=== PATIENT | male | born 1965 | race Hispanic/Latino ===

== ENCOUNTER → 2020-03-18 09:19 | Outpatient (CLI) | payer OTHER, SELFPAY ==
--- NOTE | ~2020-03-18 | MR_ITS ---
EXAMINATION: MR shoulder LT wo con DATE: 03/18/2020 09:51 INDICATION: Left shoulder pain. TECHNIQUE: Magnetic resonance imaging (MRI) of the left shoulder was performed without intravenous co ntrast. Sequences included axial PD-weighted FS FSE, coronal oblique PD-weighted FS FSE and T2-weight ed FS FSE, and sagittal oblique T2-weighted FS FSE and T1-weighted FSE. COMPARISON: None. FINDINGS: Coracoacromial arch: The acromion undersurface is curved in morphology (type II). There is mild acromioclavicular joint os teoarthritis including inferiorly directed osteophytes. There is mild subacromial/subdeltoid bursitis . Rotator cuff: There is moderate supraspinatus and infraspinatus tendinopathy. Teres minor tendon is normal. There i s moderate subscapularis tendinopathy. No tear. There is no asymmetric fatty atrophy of the rotator c uff muscle bellies. Biceps tendon and glenoid labrum: Biceps tendon is in bicipital groove. There is mild intra-articular biceps tendinopathy. There are te ars of the labrum at 9:00 and 12:00 (SLAP tear). Fluid: There is no glenohumeral joint effusion. Bones/cartilage: Glenoid cartilage is normal. Humeral head cartilage is normal. IMPRESSION: 1. Moderate rotator cuff tendinopathy. No tear. 2. SLAP tear. 3. Mild acromioclavicular joint osteoarthritis. 4. Mild subacromial/subdeltoid bursitis. 5. Mild biceps tendinopathy. Reviewed, dictated and finalized at location A.
== END ==
PROVIDERS: PCP Family Medicine; Visit Provider Orthopaedic Surgery
DX: M19.012 Primary osteoarthritis, left shoulder (principal); M75.52 Bursitis of left shoulder; S43.432A Superior glenoid labrum lesion of left shoulder, initial encounter; X58.XXXA Exposure to other specified factors, initial encounter
CPT/HCPCS: 73221

== ENCOUNTER 2020-06-16 00:58 | Outpatient (CLI) | payer OTHER, SELFPAY ==
[2020-06-16 17:10] LABS: SARS-CoV-2 RNA PCR Negative
== END 2020-06-16 00:59 | disposition home or self-care (01) ==
LOC: ANHCOVIDDT 00:58
PROVIDERS: PCP Family Medicine; Visit Provider Orthopaedic Surgery
DX: Z01.812 Encounter for preprocedural laboratory examination (principal); Z20.828 Contact with and (suspected) exposure to other viral communicable diseases
CPT/HCPCS: 87635; C9803; U0003

== ENCOUNTER 2020-06-17 15:05 | Outpatient (CLI) | payer OTHER, SELFPAY ==
--- NOTE | 2020-06-17 15:06 | ECG_ITS ---
Measurements Intervals [place] Rate: 75 P: 20 [place]: 169 QRS: -20 QRSD: 100 T: 11 QT: 386 QTc: 434 Interpretive Statements SINUS RHYTHM EARLY PRECORDIAL R/S TRANSITION LOW QRS VOLTAGE IN PRECORDIAL LEADS VOLTAGE CRITERIA FOR LVH NONSPECIFIC T-WAVE ABNORMALITY- ANT/INF LEADS BORDERLINE ECG Electronically Signed On 06-17-2020 15:57:12 [employer] by Semaj Hopkins D.O.
[2020-06-17 16:21] LABS: Anion Gap 9 mmol/L (8-16); Blood Urea Nitrogen 14 mg/dL (9-20); Calcium 9.2 mg/dL (8.4-10.2); Carbon Dioxide 29 mmol/L (22-30); Chloride 98 mmol/L (98-107); Estimated Glomerular Filt Rate > 60; Glucose 126 mg/dL (75-110); Potassium 3.5 mmol/L (3.4-5.0); Sodium 136 mmol/L (137-145)
== END 2020-06-17 15:06 | disposition home or self-care (01) ==
PROVIDERS: Anesthesiology; PCP Family Medicine; Visit Provider Orthopaedic Surgery
DX: Z01.818 Encounter for other preprocedural examination (principal); I10 Essential (primary) hypertension
CPT/HCPCS: 36415; 80048; 93005

== ENCOUNTER 2020-06-19 00:54 | Day surgery (SDC) | payer OTHER, SELFPAY ==
[2020-06-09 18:08] VITALS: BMI 30.3
--- NOTE | 2020-06-17 12:30 | WPDANESEPPF ---
Anes - Initial Pre Proc Eval Procedure: Operation Date: 06/19/20 07:30 Proposed Procedures p Left Shoulder Arthroscopy with Debridement, Subacromial Decompression, Biceps Tenodesis - Nate Szymanski MD Date/Time: 06/17/20 12:30 Surgeon: Nate Szymanski MD Pre Op Diagnosis: left labral tear, shoulder pain,biceps tendonitis Patient Data Age: 55 Gender: M Height: 1.85 m Weight: 104.33 kg Allergies Allergy/AdvReac Type Severity Reaction Status Date / Time No Known Allergies Allergy Verified 06/19/20 06:35 Home Medications Medication Instructions Recorded Confirmed Type bupropion HCl 300 mg 24 hr tablet, 300 mg PO QAM #30 tablet 09/27/19 06/19/20 Rx extended release desvenlafaxine succinate 50 mg 50 mg PO DAILY 11/15/19 06/19/20 History tablet,extended release 24 hr hydrochlorothiazide 50 mg tablet 50 mg PO DAILY #1 tablet 11/15/19 06/19/20 Rx atorvastatin 10 mg tablet 10 mg PO DAILY #30 tablet 02/04/20 06/19/20 Rx irbesartan 300 mg tablet 300 mg PO DAILY #30 tablet 05/19/20 06/19/20 Rx amlodipine 10 mg tablet 10 mg PO DAILY #30 tablet 06/11/20 06/19/20 Rx ondansetron HCl [Zofran] 4 mg PO Q8H PRN #10 tablet 06/18/20 Rx tramadol 50 mg PO Q4H PRN #20 tablet 06/18/20 Rx Patient hx anesthesia problems: none Family hx anesthesia problems: none PMFSH Past Medical History Medical History Acromioclavicular arthrosis Anxiety Essential hypertension Labral tear of long head of left biceps tendon Pure hypercholesterolemia Rotator cuff tear arthropathy of left shoulder Shoulder pain, left Subacromial impingement of left shoulder Family History Family History Father Hypertension Cerebrovascular accident Malignant neoplasm of prostate Mother Hypertension Sibling Hypertension Social History Social History Smoking end date: 06/20/04 Alcohol intake: never Substance use: never Substance use type: does not use Living arrangements: with family Gender identity (if verbalized by the patient): Male Spiritual care concerns: No Anes - Eval Final PreProcedure Day of Procedure 06/17/20 12:30 Patient weight: obese Heart: regular rate and rhythm Lungs: clear to auscultation and normal air movement Airway: Mallampati scale class II Neurological: alert and oriented Last oral intake: >/= 8 hours ASA classification: III Emergent: no Anesthetic plan: proceed Anesthesia type and monitoring: general ETT and standard monitoring Informed Consent: The patient's anesthetic plan and its attendant risks and benefits were discussed with the patient/family/POA. Questions were solicited and answers provided to the satisfaction of the patient/family/POA.
--- NOTE | 2020-06-17 12:54 | PM.IMHP ---
H&P: HPI History of Present Illness Date/Time: 06/17/20 12:54 Chief Complaint: left shoulder pain Narrative: Kirk Thomas is a 55 year old male chronic left shoulder pain, weakness loss motion. Worse with activity use of the arm. With rest numbness or tingling. Denies neck pain. Treated with physical therapy, home exercises, anti-inflammatories without result. Patient has difficulty with lifting and overhead use of the arm. MRI demonstrates labral tear and degenerative changes. Patient presents now for operative treatment. Review of Systems Constitutional: Constitutional: Denies fever(s) Eyes: Eyes: Denies blurry vision ENT: Reports Normal hearing present Cardiovascular: Cardiovascular: Denies chest pain and Denies dyspnea Respiratory: Respiratory: Denies dyspnea and Denies wheezing Gastrointestinal: Gastrointestinal: Denies abdominal pain Genitourinary: Genitourinary: Denies urinary urgency Musculoskeletal: Musculoskeletal: Reports as per HPI and Denies numbness Integumentary/Breasts: Skin/Breast: Denies changing lesions and Denies sores Neurologic: Reports Normal hearing present, Denies behavioral changes, Denies confusion, Denies numbness and Denies convulsions Psychiatric: Psychiatric: Denies behavioral changes, Denies confusion and Denies hallucinations Endocrine: Endocrine: Denies heat intolerance Hematologic/Lymphatic: Hematologic/Lymphatic: Denies easy bleeding Allergic/Immunologic: Allergic/Immunologic: Denies wheezing PMFSH Past Medical History Medical History Acromioclavicular arthrosis Anxiety Essential hypertension Labral tear of long head of left biceps tendon Pure hypercholesterolemia Rotator cuff tear arthropathy of left shoulder Subacromial impingement of left shoulder Family History Family History Father Hypertension Cerebrovascular accident Malignant neoplasm of prostate Mother Hypertension Sibling Hypertension Social History Social History Smoking end date: 06/20/04 Alcohol intake: never Substance use: never Substance use type: does not use Gender identity (if verbalized by the patient): Male Spiritual care concerns: No Meds Home Medications and Allergies Home Medications Medication Instructions Recorded Confirmed Type bupropion HCl 300 mg 24 hr tablet, 300 mg PO QAM #30 tablet 09/27/19 06/09/20 Rx extended release desvenlafaxine succinate 50 mg 50 mg PO DAILY 11/15/19 06/09/20 History tablet,extended release 24 hr hydrochlorothiazide 50 mg tablet 50 mg PO DAILY #1 tablet 11/15/19 06/09/20 Rx atorvastatin 10 mg tablet 10 mg PO DAILY #30 tablet 02/04/20 06/09/20 Rx irbesartan 300 mg tablet 300 mg PO DAILY #30 tablet 05/19/20 06/09/20 Rx amlodipine 10 mg tablet 10 mg PO DAILY #30 tablet 06/11/20 Rx Allergies Allergy/AdvReac Type Severity Reaction Status Date / Time No Known Allergies Allergy Verified 04/23/20 14:38 Exam Const: General: healthy appearing; No in distress or confusion Orientation/consciousness: oriented to person, oriented to place, oriented to time and No confusion HENMT: Head: normal to inspection, normocephalic and atraumatic Eyes: Conjunctivae: conjunctivae normal Sclera: sclerae normal Neck: Neck: supple and nontender Resp: Effort & Inspection: normal respiratory effort and no audible wheezes Cardio: Rate: regular rate Rhythm: regular rhythm Skin: General skin exam: no rashes or lesions noted Neuro: General: oriented to person, oriented to place, oriented to time and No confusion Extrem: Right upper extremity: shoulder/upper arm axillary nerve sensory function normal, normal ROM (FF 130, Abd 120, ER 70, IR T7) and other (RC 5/5, Bicep 5/5, Deltoid 5/5, ER 5/5); no tenderness and no swelling, elbow/forearm normal ROM; no tenderness a
--- NOTE | 2020-06-18 13:25 | WPDANESEPP ---
Anes - Eval Pre Procedure Procedure: Operation Date: 06/19/20 07:30 Proposed Procedures p Left Shoulder Arthroscopy with Debridement, Subacromial Decompression, Biceps Tenodesis - Nate Szymanski MD Date/Time: 06/18/20 13:25 Pre Op Diagnosis: left labral tear, shoulder pain,biceps tendonitis Patient Data Age: 55 Gender: M Height: 6 ft 1 in Weight: 104.33 kg Allergies Allergy/AdvReac Type Severity Reaction Status Date / Time No Known Allergies Allergy Verified 04/23/20 14:38 Home Medications Medication Instructions Recorded Confirmed Type bupropion HCl 300 mg 24 hr tablet, 300 mg PO QAM #30 tablet 09/27/19 06/09/20 Rx extended release desvenlafaxine succinate 50 mg 50 mg PO DAILY 11/15/19 06/09/20 History tablet,extended release 24 hr hydrochlorothiazide 50 mg tablet 50 mg PO DAILY #1 tablet 11/15/19 06/09/20 Rx atorvastatin 10 mg tablet 10 mg PO DAILY #30 tablet 02/04/20 06/09/20 Rx irbesartan 300 mg tablet 300 mg PO DAILY #30 tablet 05/19/20 06/09/20 Rx amlodipine 10 mg tablet 10 mg PO DAILY #30 tablet 06/11/20 Rx Patient hx anesthesia problems: none Family hx anesthesia problems: none PMFSH Past Medical History Medical History Acromioclavicular arthrosis Anxiety Essential hypertension Labral tear of long head of left biceps tendon Pure hypercholesterolemia Rotator cuff tear arthropathy of left shoulder Shoulder pain, left Subacromial impingement of left shoulder Family History Family History Father Hypertension Cerebrovascular accident Malignant neoplasm of prostate Mother Hypertension Sibling Hypertension Social History Social History Smoking end date: 06/20/04 Alcohol intake: never Substance use: never Substance use type: does not use Gender identity (if verbalized by the patient): Male Spiritual care concerns: No Exam Day of Procedure 06/18/20 13:25 Patient weight: overweight Heart: regular rate and rhythm Lungs: clear to auscultation Airway: Mallampati scale class II Neurological: alert and oriented
[2020-06-19] VITALS (8 sets, daily range): BP systolic 93–119; BP diastolic 54–77; PULSE 73–90; RESP 14–18; TEMP 35.9–36.1; O2SAT 98–100; BMI 32.1
--- NOTE | 2020-06-19 06:44 | WPDHPUPDATE1 ---
History and Physical Update Update Date/Time: 06/19/20 06:44 History and Physical has been reviewed, including an updated exam of the patient. There are NO changes in the patient's condition. Covid test negative. Risks, benefits, and alternatives have been discussed and questions answered. Patient agrees to proceed with procedure.
[2020-06-19] MEDS: LACTATED RINGERS 1,000 ML 30 ML IV CONT ×2 (06:47→09:21)
[2020-06-19] MEDS: ACETAMINOPHEN 500 MG TABLET 1000 MG PO (06:48)
[2020-06-19] MEDS: KETOROLAC 15 MG/ML VIAL (*BKC) IV PUSH (06:50)
[2020-06-19] MEDS: ceFAZolin 2 GM/D5W 50 ML 2 GM/50 ML BAG IVPB (07:28)
[2020-06-19] MEDS: LIDO 1%/EPINEPHRINE 1:100,000 50 ML VIAL INFILTRATE (08:41)
[2020-06-19] MEDS: BUPIVACAINE HCL 0.5% PF 30 ML VIAL INFILTRATE (08:41)
--- NOTE | 2020-06-19 09:43 | PM.PROC ---
Procedure Note - Detailed Date of procedure: 06/19/20 Pre-op diagnosis: left labral tear, shoulder pain,biceps tendonitis Post-op diagnosis: same Procedure performed: Left shoulder arthroscopy with debridement, subacromial decompression, biceps tenodesis Description of procedure: Indications: Patient is a 55-year-old gentleman with chronic left shoulder pain. MRI demonstrates labral tear with biceps tendinitis and bursitis consistent with impingement. Patient has failed conservative treatment with physical therapy, home exercises, anti-inflammatories. He presents for operative treatment. What was done: Patient identified in the preoperative holding. Informed consent given. Operative extremity marked. Patient received intravenous antibiotics. Patient brought to the operating room where underwent general anesthetic by anesthesia team. Positioned supine on operating room table. Table then positioned in a beach chair with careful securing of the head and neck and padding for the bony prominences. After checking position a Time-out performed confirming the patient, site of the surgery and the plan. Left shoulder prepped draped usual sterile surgical fashion using ChloraPrep skin solution. Standard arthroscopic portals mapped out on the skin. Saline injected into the glenohumeral joint with the 18 gauge spinal needle. Eleven blade knife used to make a posterior camera portal through the skin. Blunt penetration of the capsule and the camera and inflow were inserted. Good return of fluid noted. Shoulder joint was inspected. Mild degenerative changes of the glenoid and humeral head with no exposed bone. Superior extending to posterior tear of the labrum with instability. Degenerative changes of the proximal biceps at the biceps anchor as well as inflammation of the proximal biceps tendon. Rotator cuff noted to be intact. An anterior portal then made with 18 gauge needle for positioning followed by an 11 blade knife for the skin and blunt penetration of the capsule. 4.5 mm shaver introduced and debridement of the intra-articular portion performed including the articular surface of the glenoid and humeral head, labral surface and anterior synovitis. Due to the labral tear and degenerative changes of the biceps a tenotomy was indicated. Arthroscopic wand introduced and the biceps was released from the labral anchor. Bleeding points were coagulated with the Wand and the debridement of the labrum was completed with the Wand. Camera and inflow then positioned in the subacromial space. A lateral portal made with 11 blade knife for the skin and blunt penetration of the soft tissue. The shaver introduced from the lateral portal and a subacromial decompression performed. Bleeding points coagulated with the Wand. The arthroscopic fluid was then suctioned from the subacromial and glenohumeral spaces. Skin incisions closed with 3 Monocryl subcuticular stitch and glue for the skin. Oblique incision then made in the left axillary fold with the 10 blade knife. Hemostasis controlled electrocautery. Dissection carried down to the subpectoral area. Medial retraction used on the short head of the biceps to protect the neurovascular bundle. The long head of the biceps and identified and brought out through the wound. Whip stitch placed at the musculotendinous junction and the distal aspect of the tendon was removed. This was noted to be diseased tendon which was degenerative and thickened. Tenodesis then performed with a fiber tack suture placed bicortical fashion followed by a bio tenodesis screw. Good fixation noted. Wound thoroughly irrigated with antibiotic solution and closed with 2 Vicryl interrupted suture and 3 Monocryl running subcuticular stitch. Glue for the skin. Sterile dressing applied. The patient was then woken from anesthesia, extubated and taken to the recovery room in stable condition. All sponge, needle, instrument counts were correct at the end of the case.
--- NOTE | 2020-06-19 10:07 | SUR.PHASEI ---
[id number]. DOMITILA THOMASON TO SPEAK WITH PT.
== END 2020-06-19 11:00 | disposition home or self-care (01) ==
PROVIDERS: PCP Family Medicine; Visit Provider Orthopaedic Surgery
PROC: (CPT 29805; principal; 2020-06-19 07:30)
DX: M75.82 Other shoulder lesions, left shoulder (principal); M75.22 Bicipital tendinitis, left shoulder; M19.012 Primary osteoarthritis, left shoulder; M75.42 Impingement syndrome of left shoulder; M75.52 Bursitis of left shoulder; I10 Essential (primary) hypertension; E78.00 Pure hypercholesterolemia, unspecified; E66.9 Obesity, unspecified; Z68.32 Body mass index [BMI] 32.0-32.9, adult
CPT/HCPCS: 29823; 23430; 36415; 80048; 93005; A4565; A9270; C9803; J0690; J1100; J1885; J2250; J2370; J2405; J2704; J2710; J3010; J7120; U0003

== ENCOUNTER 2020-07-04 12:53 | Outpatient (CLI) | payer OTHER, SELFPAY ==
--- NOTE | ~2020-07-04 | XR_ITS ---
EXAMINATION: XR lg joint inject/asp w image DATE: 07/04/2020 13:21 INDICATION: Right hip arthritis. TECHNIQUE: A time-out was performed to verify the patient's name, date of , and procedure to b e performed. The procedure including the risks, benefits, and alternatives was discussed with the pat ient. Risks discussed included bleeding and infection. The patient understood the risks and agreed to proceed. The skin overlying the right hip joint was prepped and draped in usual sterile fashion. A nesthetic was administered with 1% lidocaine subcutaneously. A 22 G needle was advanced under fluoro scopic guidance into the joint. Injection of 1 mL of Omnipaque 240 confirmed intra-articular positio n of the needle. 3 mL clear, yellow fluid was aspirated and discarded. Subsequently, injectate consis ting of 2 mL 0.5% bupivacaine and 1 mL 80 mg/mL Depo-Medrol was instilled. The needle was removed an d the entry site was cleaned and dressed. There were no immediate complications. Fluoroscopy exposur e time was 0.1 minutes. The total number of images was 2. FINDINGS: Real-time fluoroscopy demonstrates the needle in the right hip joint. Patient's pain prior to procedure:11/27. Patient's pain following the procedure: 06/29. IMPRESSION: 1. Right hip joint injection of local anesthetic and steroid with decrease in the patient's presentin g pain. Reviewed, dictated and finalized at location A. PLACER IMPRESSION: 1. Right hip joint injection of local anesthetic and steroid with decrease in t he patient's presenting pain.
== END 2020-07-04 12:54 | disposition home or self-care (01) ==
LOC: ANHIMG 12:57
PROVIDERS: PCP Family Medicine; Visit Provider Orthopaedic Surgery
DX: M16.11 Unilateral primary osteoarthritis, right hip (principal)
CPT/HCPCS: 20610; 77002; J1040; Q9966

== ENCOUNTER 2020-11-04 12:53 | Outpatient (CLI) | payer OTHER, SELFPAY ==
--- NOTE | ~2020-11-04 | XR_ITS ---
EXAMINATION: XR lg joint inject/asp w image DATE: 11/04/2020 13:36 INDICATION: Unilateral primary osteoarthritis, right hip. TECHNIQUE: The skin overlying the right hip joint was prepped and draped in usual sterile fashion. A nesthetic was administered with 1% lidocaine subcutaneously. A 22 G needle was advanced under fluoro scopic guidance into the joint. Injection of 1 mL of Omnipaque 240 confirmed intra-articular positio n of the needle. Subsequently, injectate consisting of 5 mL 1% lidocaine and 2 mL 10 mg/mL Kenalog w as instilled. The needle was removed and the entry site was cleaned and dressed. There were no imme diate complications. Fluoroscopy exposure time was 0.1 minutes. The total number of images was 2. FINDINGS: Real-time fluoroscopy demonstrates the needle in the right hip joint. Patient's pain prior to procedure:11/27. Patient's pain following the procedure: 07/30. IMPRESSION: 1. Fluoroscopy guided right hip joint injection of local anesthetic and steroid with decrease in the patient's presenting pain. Reviewed, dictated and finalized at location A.
== END 2020-11-04 12:54 | disposition home or self-care (01) ==
PROVIDERS: PCP Family Medicine; Visit Provider Orthopaedic Surgery
DX: M16.11 Unilateral primary osteoarthritis, right hip (principal)
CPT/HCPCS: 20610; 77002; J3301; Q9966

== ENCOUNTER 2021-02-04 10:10 | Outpatient (CLI) | payer OTHER, SELFPAY ==
--- NOTE | ~2021-02-04 | XR_ITS ---
XR hip RT min 3V w AP pelvis DATE: 02/04/2021 10:30 INDICATION: Right hip pain, limited range of motion. TECHNIQUE: AP pelvis. AP, lateral and crosstable lateral views of right hip COMPARISON: 07/01/2020 pelvis and right hip FINDINGS: There is asymmetric severe right hip osteoarthritis with increased joint space narrowing an d spurring since 07/01/2020. No fracture or dislocation or bone destruction of the right hip is evident. The pubic symphysis and sacroiliac joints are intact. No pelvic fracture or pelvic bone destruction i s evident. Severe degenerative disc disease at L5-S1. IMPRESSION: Asymmetric severe right hip osteoarthritis, increased in severity since 07/01/2020 Severe degenerative disc disease at L5-S1 Reviewed, dictated and finalized at location A. IMPRESSION: Asymmetric severe right hip osteoarthritis, increased in severity s mehrdad 07/01/2020 Severe degenerative disc disease at L5-S1
== END 2021-02-04 10:11 | disposition home or self-care (01) ==
LOC: ANHIMG 10:12
PROVIDERS: PCP Family Medicine; Visit Provider Orthopaedic Surgery
DX: M25.551 Pain in right hip (principal); M16.11 Unilateral primary osteoarthritis, right hip; M51.37 Other intervertebral disc degeneration, lumbosacral region
CPT/HCPCS: 73502

== ENCOUNTER 2021-03-06 12:15 | Outpatient (CLI) | payer OTHER, SELFPAY ==
--- NOTE | ~2021-03-06 | XR_ITS ---
EXAMINATION: XR lg joint inject/asp w image DATE: 03/06/2021 12:55 INDICATION: Unilateral primary osteoarthritis of the right hip. TECHNIQUE: A time-out was performed to verify the patient's name, date of , and procedure to b e performed. The procedure including the risks, benefits, and alternatives was discussed with the pat ient. Risks discussed included bleeding and infection. The patient understood the risks and agreed to proceed. The skin overlying the right hip joint was prepped and draped in usual sterile fashion. A nesthetic was administered with 1% lidocaine subcutaneously. A 22 G needle was advanced under fluoro scopic guidance into the joint. Injection of 1 mL of Omnipaque 240 confirmed intra-articular positio n of the needle. Subsequently, injectate consisting of 7 mm a 5:2 mixture of 1% lidocaine: 10 mg/mL Kenalog for a total dosage of 20 mg Kenalog was instilled. Washout of contrast was seen confirming in tra-articular administration. The needle was removed and the entry site was cleaned and dressed. The re were no immediate complications. Fluoroscopy exposure time was 0.1 minutes. The total number of im ages was 2. Total DAP was 0.334 mGycm^2 FINDINGS: Real-time fluoroscopy demonstrates the needle in the right hip joint. Patient's pain prior to procedure:8/10. Patient's pain following the procedure: 0/10. IMPRESSION: 1. Successful right hip joint injection of local anesthetic and steroid with decrease in the patient' s presenting pain. Reviewed, dictated and finalized at location A. IMPRESSION: 1. Successful right hip joint injection of local anesthetic and steroid with de crease in the patient's presenting pain.
== END 2021-03-06 12:16 | disposition home or self-care (01) ==
LOC: ANHIMG 12:19
PROVIDERS: PCP Family Medicine; Visit Provider Orthopaedic Surgery
DX: M16.11 Unilateral primary osteoarthritis, right hip (principal)
CPT/HCPCS: 20610; 77002; J3301; Q9966

== ENCOUNTER 2021-05-28 07:49 | Outpatient (CLI) | payer OTHER, SELFPAY ==
[2021-05-28 08:57] LABS: Basophils Absolute Auto 0.1 K/mm3 (0.0-0.1); Basophils Percent Auto 1.1 % (0.2-1.2); Eosinophils Absolute Auto 0.3 K/mm3 (0-0.3); Eosinophils Percent Auto 4.4 % (0-4.4); Hemoglobin 16.3 g/dL (14.0-18.0); Immature Granulocyte Absolute 0.01 K/mm3 (0.00-0.031); Immature Granulocyte Percent A 0.2 % (0-0.5); Lymphocytes Absolute Auto 1.65 K/mm3 (0.9-3.2); Lymphocytes Percent Auto 26.8 % (18.3-44.2); Mean Corpuscular HGB Conc 36.2 g/dl (32-36); Mean Corpuscular Hemoglobin 32.2 pg (26-34); Mean Corpuscular Volume 88.9 fl (80-100); Mean Platelet Volume 9.3 fl (7.4-10.4); Monocytes Absolute Auto 0.6 K/mm3 (0.1-0.6); Monocytes Percent Auto 9.9 % (2.6-8.5); Neutrophils Absolute Auto 3.5 K/mm3 (1.3-6.7); Neutrophils Percent Auto 57.6 % (45.5-73.1); Platelet Count Result 238 k/mm3 (150-375); Red Blood Count 5.06 M/mm3 (4.6-6.20); Red Cell Distribution Width 12.1 % (11.5-14.5); White Blood Count 6.2 K/mm3 (4.5-10.0)
[2021-05-28 09:03] LABS: Urine Cotinine NEGATIVE
[2021-05-28 09:07] LABS: Albumin Level 4.3 g/dL (3.5-5.1); Anion Gap 8 mmol/L (8-16); Blood Urea Nitrogen 12 mg/dL (9-20); Calcium 9.5 mg/dL (8.4-10.2); Carbon Dioxide 29 mmol/L (22-30); Chloride 101 mmol/L (98-107); Estimated Glomerular Filt Rate > 60; Glucose 101 mg/dL (65-110); Potassium 3.9 mmol/L (3.4-5.0); Sodium 138 mmol/L (137-145)
[2021-05-28 10:07] LABS: Hemoglobin A1C 4.8 % (<5.7)
== END 2021-05-28 07:50 | disposition home or self-care (01) ==
PROVIDERS: PCP Family Medicine; Visit Provider Orthopaedic Surgery
DX: Z01.818 Encounter for other preprocedural examination (principal); M16.11 Unilateral primary osteoarthritis, right hip
CPT/HCPCS: 80048; 80307; 82040; 83036; 85025; 86850; 86900; 86901; 87081

== ENCOUNTER 2021-06-08 01:22 | Day surgery (SDC) | payer OTHER, SELFPAY ==
--- NOTE | 2021-05-28 08:08 | PC.NURSE ---
Report to the Outpatient Waiting Room, entrance under the green pavilion located off [facility], at time _0600 on date __06/08/21 . OR Time: 729 . - You and your visitor will be asked a series of questions to screen for COVID 19 for your protection. - A mask is required within the hospital. - Only one visitor is allowed at this time. Patient visitors will be guided where to wait when not with patient. Preoperative COVID Testing Requirements: No COVID Test needed if: (proof is required; if not received patient will have Rapid Test prior to entry) - Patient has received COVID Vaccine at least 14 days prior to procedure date or - Patient has positive COVID test result within last 90 days of surgery date. COVID Test needed if above criteria is not met If not COVID vaccinated a COVID test must be conducted within 72 hours of surgery and patient is asked to isolate self from time of testing until procedure. You will go to the [employer] [facility] for your COVID testing. The [employer] [facility] site is located at the corner of [address] [facility]. You will only be called if COVID results are positive and your surgeon may reschedule your elective surgery date. Patients may have clear liquids (water, carbonated beverages, clear teas, apple juice) until 3 hours prior to surgery with a maximum of 20 ounces. - No food from midnight until time of surgery - Infants may have breast milk until 4 hours before surgery, infant formula 6 hours prior to surgery. - Children will be allowed to drink immediately following surgery. If applicable, please bring a bottle or sippy cup to assist with drinking. Juice, water, soda, and popsicles are readily available. For infants on formula, please bring formula the day of surgery. Pacifiers are allowed. Take the following medications with a SIP of water the morning of surgery: _AMLODIPINE,DESVENLAFAXINE,AND BUPROPION Medications to discontinue per physician ____MULTIVITAMIN 3 DAYS PRE OP Date to take last dose__06/04/21 Please no make-up, nail sami, hairspray, perfume, deodorant, or body powder the day of surgery. No jewelry (including any body piercings) or valuables the day of surgery, leave them at home. Please take a shower or bath the night before, or the morning of, surgery with an antibacterial soap. Wear comfortable, loose fitting clothing. Children are encouraged to wear pajamas. - Jewelry must be removed prior to entering the operating room. Rings and piercings that are not removed may be cut off. - The hospital will not accept responsibility for valuables. - Please leave all valuables, including medications, at home the day of surgery. If you are going home after surgery, a licensed lift driver must drive you home. - NO public transportation without another adult. - We recommend that an adult stay with you for 24 hours following discharge. - We also recommend that you do not drive, make important decision, drink alcoholic beverages, or take any drugs that were not prescribed by your health care provider for at least 24 hours after your discharge time. For Pediatric surgeries, we recommend two adults accompany the child home (only one inside the building at this time). Follow any additional instructions given to you from your surgeon. VERBAL instructions given to ___PATIENT and asked if any additional questions and then verbalized understanding. Patient advised to call surgeon office or pre surgery nurse liaison [phone] if any additional questions.
[2021-05-28 08:26] VITALS: BP 137/87; PULSE 74; RESP 16; TEMP 37.2; O2SAT 99; BMI 29.1
[2021-06-08] VITALS (10 sets, daily range): BP systolic 113–161; BP diastolic 64–90; PULSE 64–92; RESP 9–20; TEMP 36.2–36.6; O2SAT 95–100
--- NOTE | ~2021-06-08 | XR_ITS ---
EXAMINATION: XR hip RT min 2V DATE: 06/08/2021 11:02 INDICATION: Right hip arthroplasty. Postop. TECHNIQUE: 2 views of right hip were obtained. COMPARISON: Right hip radiographs 05/21/2021 FINDINGS: There is a total right hip arthroplasty in near-anatomic alignment. No fracture. There is g as in the soft tissues, consistent with recent surgery. IMPRESSION: 1. Total right hip arthroplasty in near-anatomic alignment. Reviewed, dictated and finalized at location A. DING MAINTENANCE MECHANIC
--- NOTE | ~2021-06-08 | XR_ITS ---
EXAMINATION: XR surgery orthopedic DATE: 06/08/2021 11:02 INDICATION: Right hip arthroplasty TECHNIQUE: Single fluoroscopic view right hip. 21 seconds of fluoroscopy. FINDINGS: There is a right total hip arthroplasty in expected position. Subcutaneous gas with soft t issue swelling are consistent with recent surgery. IMPRESSION: 1. Recent right total hip arthroplasty. Reviewed, dictated and finalized at location A. ICAL SAFETY SPECIALIST
[2021-06-08] MEDS: ACETAMINOPHEN 500 MG TABLET 1000 MG PO ×2 (06:29→21:00)
[2021-06-08] MEDS: LACTATED RINGERS 1,000 ML 30 ML IV CONT ×2 (06:35→10:39)
[2021-06-08] MEDS: TRANEXAMIC ACID 1,000MG/ISO100 1,000 MG/100 ML BAG 200 MG IVPB (07:10)
--- NOTE | 2021-06-08 07:16 | WPDHPUPDATE1 ---
History and Physical Update Update Date/Time: 06/08/21 07:16 History and Physical has been reviewed, including an updated exam of the patient. There are NO changes in the patient's condition. Risks, benefits, and alternatives have been discussed and questions answered. Patient agrees to proceed with procedure.
--- NOTE | 2021-06-08 07:25 | WPDANESEPP ---
Anes - Eval Pre Procedure Procedure: Operation Date: 06/08/21 07:30 Proposed Procedures p Right Total Hip Arthroplasty, Anterior Approach - George Jeff MD Date/Time: 06/08/21 07:25 Pre Op Diagnosis: OA right hip Patient Data Age: 56 Gender: M Height: 1.85 m Weight: 100.2 kg Last Vital Signs Temp 98.9 F 05/28/21 08:26 Pulse 74 05/28/21 08:26 Resp 16 05/28/21 08:26 BP 137/87 05/28/21 08:26 Pulse Ox 99 05/28/21 08:26 Allergies Allergy/AdvReac Type Severity Reaction Status Date / Time No Known Allergies Allergy Verified 06/08/21 06:25 Home Medications Medication Instructions Recorded Confirmed Type desvenlafaxine succinate 50 mg 25 mg PO DAILY 11/15/19 06/08/21 History tablet,extended release 24 hr hydrochlorothiazide 50 mg tablet 50 mg PO DAILY #1 tablet 11/15/19 06/08/21 Rx bupropion HCl 300 mg 24 hr tablet, 150 mg PO QAM tablet 12/09/20 06/08/21 History extended release atorvastatin 10 mg tablet 10 mg PO DAILY #30 tablet 04/27/21 06/08/21 Rx rivaroxaban 10 mg tablet 10 mg PO DAILY #14 tablet 05/25/21 06/08/21 Rx multivitamin [Men's Multi-Vitamin] 1 tablet PO DAILY 05/28/21 06/08/21 History naproxen sodium [Aleve] 440 mg PO BID 05/28/21 06/08/21 History amlodipine 10 mg PO DAILY 06/08/21 06/08/21 History irbesartan 300 mg PO DAILY 06/08/21 06/08/21 History Patient hx anesthesia problems: none Family hx anesthesia problems: none Results Review: All pre-operative results and documents have been reviewed as part of the pre-operative evaluation. [facility] Past Medical History Medical History Acromioclavicular arthrosis Anxiety Arthritis of right hip Essential hypertension History of substance abuse Obesity SIERRA (obstructive sleep apnea) Pure hypercholesterolemia Rotator cuff tear arthropathy of left shoulder Shoulder pain, left Surgical History Surgical History Labral tear of long head of left biceps tendon biceps tenodesis 2019 Subacromial impingement of left shoulder Arthroscopic subacromial decompression 2019 Family History Family History Father Hypertension Cerebrovascular accident Malignant neoplasm of prostate Mother Hypertension Sibling Hypertension Social History Social History Smoking packs per day: 0.5 Smoking cigarettes per day: 10.0 Years smoked: 8 Smoking pack-years: 4.00 Smoking status: Former smoker Tobacco type: cigarettes Second hand tobacco smoke exposure: No Smoking end date: 06/20/04 Additional smoking assessment comments: DENIES ANY FORM OF TOBACCO USE Alcohol intake: never Substance use: never Substance use type: does not use Living arrangements: with family Gender identity (if verbalized by the patient): Male Sexual Orientation (if Verbalized by the Patient): Straight or Heterosexual Spiritual care concerns: No Exam Day of Procedure 06/08/21 07:25 Patient weight: overweight Heart: regular rate and rhythm Lungs: clear to auscultation Airway: Mallampati scale class II Neurological: alert and oriented
--- NOTE | 2021-06-08 07:28 | WPDANESEFPP ---
Anes - Eval Final PreProcedure Day of Procedure 06/08/21 07:28 Patient weight: overweight Heart: regular rate and rhythm Lungs: clear to auscultation Airway: Mallampati scale class II Neurological: alert and oriented Last oral intake: >/= 8 hours ASA classification: III Emergent: no Anesthetic plan: proceed Anesthesia type and monitoring: general and standard monitoring Results Review: All pre-operative results and documents have been reviewed as part of the pre-operative evaluation. Informed Consent: The patient's anesthetic plan and its attendant risks and benefits were discussed with the patient/family/POA. Questions were solicited and answers provided to the satisfaction of the patient/family/POA.
[2021-06-08] MEDS: ceFAZolin 2 GM/D5W 50 ML 2 GM/50 ML BAG IVPB ×3 (07:35→23:20)
--- NOTE | 2021-06-08 10:52 | P.OP_ITS ---
Procedure Note - Detailed Date of Procedure 06/08/21 Pre-op Diagnosis OA right hip Post-op Diagnosis same Procedure Performed Right total hip replacement through anterior approach Surgeon George Jeff MD [employer] Shilpa Vega Anesthesia general Description of Procedure The patient was identified, proper side identified, and then taken to the operating room. After induction of general anesthesia with endotracheal intubation, he was then transferred over to the Gordon table positioning supine in the usual manner for an anterior hip procedure. Positioning was assessed fluoroscopically after which the right hip and thigh was prepped and draped in the usual sterile fashion. 10 cc of the arthroplasty solution was injected into the subcutaneous tissue over the TFL muscle belly. Longitudinal incision was made over the muscle belly. Subcutaneous tissue was sharply dissected down to t he TFL fascia which was incised in line with the fibers the TFL. The TFL was retracted laterally and the rectus femoris medially. The rectus fascia was divided. The branches of the anterior femoral circumflex artery were identified and cauterized allowing for access to the hip capsule. Pericapsular fatty tissue was removed. The capsule was divided in an inverted T-fashion. The neck cut was made one fingerbreadth above the level of the lesser trochanter. Head fragment was removed and the acetabulum cleared of debris. Acetabulum was sequentially reamed under fluoroscopic visualization up to 55 mm. A 56 G7 acetabular shell was inserted under fluoroscopic visualization in approximately 40? of abduction and 15? of anteversion following the patient's anatomy. The liner for the 36 head was placed. The femur was then delivered up into the wound with the appropriate releases. The proximal femur was prepared for the 13 echo microplasty stem and a trial reduction was undertaken. Overall alignment was assessed fluoroscopically in the AP and lateral views noting it to be satisfactory. Trial components were removed. The wound was irrigated with pulsatile lavage. The real 13 high offset Echo micro plasty stem was then seated. This construct with a 36, minus three head gave excellent nondenominational of leg lengths and stability so the real 36, - three was attached to the neck of the femoral component after it had been cleaned and dried. Hip was again reduced and stability assessed, and it was noted to be stable. After final lavage of the wound, the periarticular tissues were injected with an additional 50 cc of the arthroplasty solution. 1 g of tranexamic acid was left in the wound. The capsule was reapproximated with #2 Vicryl suture, the TFL fascia with 0 looped PDS suture, the subcu with two of strata fix in the deeper layers and two of strata fix subcuticular stitch. Tissue adhesive was used for the skin. Sterile dressing was applied. He tolerated the procedure well. He was transferred back to a bed and taken to recovery area in stable condition. There were no known intraoperative complications. Estimated blood loss was 750 cc, he received 350 cc back via Cell [employer]ver. He received perioperative antibiotics. Estimated Blood Loss -750.0 Urine Output -150.0 Drains No Packing No Pathology none sent Complications No immediate complications Condition stable Disposition PACU
[2021-06-08] MEDS: fentaNYL CITRATE INJ (*CRX) 100 MCG/2 ML VIAL 25 MCG IV PUSH ×6 (10:58→11:39)
[2021-06-08] MEDS: oxyCODONE HCL (*CRX) 5 MG TAB IR PO ×3 (12:38→21:00)
--- NOTE | 2021-06-08 12:56 | ADMGEN ---
This patient, Kirk Thomas, was admitted to [facility] Surgery-1. Patient/family oriented to hospital policies and general routines including ID bracelet, bed and alarms, visiting hours, pain management, procedures, bathroom and other care routines, personal items, smoking policy, room service/diet, and visiting hours. Information on how to activate the Rapid Response Team has been discussed. Patient/Family are encouraged to report perceived risks to care and to ask questions if they do not understand what they are told or what they should do.
[2021-06-08] MEDS: KETOROLAC 15 MG/ML VIAL (*BKC) IV PUSH ×3 (13:33→23:15)
[2021-06-08] MEDS: ONDANSETRON INJ 4 MG/2 ML VIAL IV PUSH (13:33)
--- NOTE | 2021-06-08 16:19 | PC.NURSE ---
Spoke with pharmacy about NF medication, Desvenlafaxine 25mg. Pharmacist stated if patient had home medication to tube medication down, and they would verify. I let them know that they patient will more than likely be discharged tomorrow. Pharmacist said if patient wanted to wait and take medication at home, that is fine. Spoke with patient about sending his Desvenlafaxine 25mg down to pharmacy so they can verify, or they said he could wait until tomorrow (06/09/2021) and take it. Patient stated he would hold the medication and take when he was home.
[2021-06-08] MEDS: SENNA/DOCUSATE SODIUM TABLET 2 TAB PO (16:49)
[2021-06-08] MEDS: FAMOTIDINE 20 MG TABLET PO (21:00)
[2021-06-09] MEDS: hydrOXYzine HCL 25 MG TABLET 50 MG PO (01:05)
[2021-06-09] MEDS: oxyCODONE HCL (*CRX) 5 MG TAB IR PO ×2 (01:05→05:15)
[2021-06-09] MEDS: ACETAMINOPHEN 500 MG TABLET 1000 MG PO (05:15)
[2021-06-09] MEDS: ceFAZolin 2 GM/D5W 50 ML 2 GM/50 ML BAG IVPB (06:48)
[2021-06-09 06:58] VITALS: BP 116/62; PULSE 72; RESP 16; O2SAT 97
--- NOTE | 2021-06-09 07:18 | PM.DS ---
DS: Admitting Diagnosis Discharge Date June 09, 2021 Admitting Diagnosis Osteoarthritis right hip DS: Discharge Diagnosis Discharge Diagnosis (1) History of right hip replacement: Code(s): Z96.641 - Presence of right artificial hip joint Status: Acute Assessment and Plan: Plan discharge home today after physical therapy. Home going instructions reviewed. DS: Summary Hospital Course Reason for hospitalization: Observation following outpatient procedure. Hospital Course: Following the patient's surgery, he was admitted for observation following an outpatient procedure. He did well overnight and is going to be discharged home today. Status at Discharge Cognitive/behavioral status at discharge: Alert oriented x3. Functional status at discharge: uses cane/walker Overall status at discharge: patient is not back to baseline Time Spent with Patient Time attestation: Total time spent providing and/or coordinating discharge services: Exam Const: General: cooperative, no acute distress and alert Nutritional Appearance: other Orientation/consciousness: patient oriented x3 Limitations: no limitations HENMT: Head: normal to inspection Ears: hearing grossly normal bilaterally Face and sinus: face symmetric Mouth: Yes moist mucous membranes Teeth and gingiva: fair dentition Eyes: Alignment and Position: alignment normal and position normal Sclera: sclerae normal Neck: Neck: normal visual inspection and nontender Chest: Chest palpation & inspection: normal inspection of the chest Resp: Effort & Inspection: normal respiratory effort and able to speak in complete sentences GI: Inspection: other (Nondistended) Skin: General skin exam: normal color Rashes: no rashes Neuro: General: patient oriented x3 Cognition (Neuro): normal cognition Speech: normal speech Gait exam (Neuro): Other gait observations present (Ambulating well with walker) Sensory Exam: normal sensation Extrem: General: normal to inspection and other Other: Exam of the right hip wound shows that it is dry with no drainage on the dressing. Is well opposed. No bruising but there is swelling. Right lower extremity exam otherwise unremarkable. Psych: Appearance: grossly normal Mental Status: mental status grossly normal Radiology Reports: Comments: EXAMINATION: XR hip RT min 2V DATE: 06/08/2021 11:02 INDICATION: Right hip arthroplasty. Postop. TECHNIQUE: 2 views of right hip were obtained. COMPARISON: Right hip radiographs 05/21/2021 FINDINGS: There is a total right hip arthroplasty in near-anatomic alignment. No fracture. There is gas in the soft tissues, consistent with recent surgery. IMPRESSION: 1. Total right hip arthroplasty in near-anatomic alignment. Reviewed, dictated and finalized at location A. BONER Discharge Plan Discharge Patient Disposition: Home, Self-Care Discharge Instructions: 3 times daily for 20 minutes each time, reclining in bed with ice packs over the incision and a pillow underneath the calf of the affected leg, not under the knee. He will be doing this for 2-3 weeks. Your wound is glued so it is okay to get into the shower and get the wound wet in two days. Be sure to read through all the information that came from a my office and the hospital. Most of the answers you will need can be found that material. Call the office with any questions that you cannot find answers to, or concerns you may have. After the Xarelto is completed, start taking one coated 325 mg aspirin daily and do this for four more weeks. Please call [facility] at as soon as possible to verify your follow-up appointment to be seen in 2 weeks. Also, call the office with any orthopedic/surgical related questions prior to follow-up. Be sure to get up and move around several times daily but do not ove
--- NOTE | 2021-06-09 08:44 | WPDANESPN ---
Anes - Prog Note Post-Op Date/Time: 06/09/21 08:44 Cardiovascular status: normal Respiratory status: normal Airway patency: baseline Mental status: baseline Post-Op hydration status: normal Vital Signs: Last Vital Signs Temp 36.2 C L 06/08/21 13:58 Pulse 72 06/09/21 06:58 Resp 16 06/09/21 06:58 BP 116/62 06/09/21 06:58 Pulse Ox 97 06/09/21 06:58 Pain Score (VAS): 0 I/O: Intake & Output 06/08/21 06/09/21 06/09/21 23:59 07:59 15:59 Intake Total 50 Balance 50 Post-procedural complaints: none Patient Feedback: Patient satisfied with anesthetic care.
--- NOTE | 2021-06-09 09:00 | PC.NURSE ---
patient states has already taken home morning medication on MAR
--- NOTE | 2021-06-09 09:10 | PCOTNOTE ---
On 06/09/21, the student, Blanche Farooq, provided care and completed [facility] documentation on this patient. I have reviewed the student's documentation and agree with the findings.
== END 2021-06-09 09:26 | disposition home or self-care (01) ==
LOC: ANHSURGERY 10:56 → ANHSUROVER 12:18
PROVIDERS: PCP Family Medicine; Visit Provider Orthopaedic Surgery
PROC: (CPT 27130; principal; 2021-06-08 07:30)
DX: M16.11 Unilateral primary osteoarthritis, right hip (principal); E78.00 Pure hypercholesterolemia, unspecified; I10 Essential (primary) hypertension; G47.33 Obstructive sleep apnea (adult) (pediatric); F41.9 Anxiety disorder, unspecified; Z87.891 Personal history of nicotine dependence; Z79.01 Long term (current) use of anticoagulants
CPT/HCPCS: 27130; 73502; 80048; 80307; 82040; 83036; 85025; 86850; 86900; 86901; 87081; 97110; 97162; 97165; 97535; A9270; C1776; J0171; J0690; J1100; J1170; J1885; J2250; J2270; J2370; J2405; J2704; J2710; J2795; J3010; J7120

== ENCOUNTER 2022-10-23 11:00 | Outpatient (CLI) | payer OTHER, SELFPAY ==
--- NOTE | ~2022-10-23 | XR_ITS ---
EXAMINATION: XR hip RT min 3V w AP pelvis DATE: 10/23/2022 11:15 INDICATION: Right hip replacement follow-up. TECHNIQUE: An anteroposterior view of the pelvis and 3 views of right hip were obtained. COMPARISON: Pelvis and right hip radiographs 08/06/2021 FINDINGS: There is lumbar levocurvature and mild spondylosis. No fracture. There is a total right hip arthroplasty in near-anatomic alignment. No periprosthetic lucency to suggest loosening or infection . There is mild left hip osteoarthritis. IMPRESSION: 1. Total right hip arthroplasty in near-anatomic alignment. 2. Mild left hip osteoarthritis. Reviewed, dictated and finalized at location A.
== END 2022-10-23 11:01 | disposition home or self-care (01) ==
LOC: ANHIMG 11:01
PROVIDERS: PCP Family Medicine; Visit Provider Orthopaedic Surgery
DX: Z96.641 Presence of right artificial hip joint (principal); M16.12 Unilateral primary osteoarthritis, left hip
CPT/HCPCS: 73502

== ENCOUNTER → 2023-08-02 08:34 | Outpatient (CLI) | payer OTHER, SELFPAY ==
--- NOTE | ~2023-08-02 | MR_ITS ---
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 Sequences included sagittal T1-weighted FSE, sagittal fluid sensitive FSE STI R, coronal PD-weighted FS FSE, coronal T1-weighted FSE, axial PD-weighted FS FSE, and axial PD-weight ed FSE. COMPARISON: None FINDINGS: Medial ankle ligaments: Deep and superficial deltoid ligaments as well as the spring ligament are normal. Lateral ankle ligaments: The anterior and posterior inferior tibiofibular ligaments are normal. The anterior talofibular, calc aneofibular and posterior talofibular ligaments are normal. Tendons: Mild fusiform thickening of the Achilles tendon consistent with mild tendinosis without tear or perit endinitis. Small enthesophyte at the calcaneal insertion of the tendon. The peroneus longus tendon is normal. There is moderate tendinopathy and longitudinal split tearing of the peroneus brevis tendon beginning at the level of the retromalleolar groove. There is attenuation of the distal 4 cm of the t endon suggesting partial tear. The tibialis anterior and extensor hallucis longus and extensor digito rum longus tendons are normal. The tibialis posterior, flexor digitorum longus and flexor hallucis lo ngus tendons are normal. Plantar fascia: Mild thickening and mild increased signal at the calcaneal origin of the proximal central component o f the plantar aponeurosis consistent with mild tendinopathy/enthesopathy. There is no surrounding sof t tissue or marrow edema to suggest acute plantar fasciitis. There is however an approximately 2.3 x 1.6 x 0.9 cm region of loss of T1 hyperintense fat signal in the immediately underlying plantar fat p ad. There is a fusiform region of thickening and increased signal of the central component of the chey ntar aponeurosis located plantar to the navicula which measures 2.7 cm proximal to distal, 2.0 cm med ial to lateral and up to 6 mm in thickness consistent with provided history of plantar fibromatosis. Bones/other: Bone alignment is normal. No fracture. Polyarticular osteoarthritis, moderate severity at the articul ar relation between the head of the first metatarsal and the first metatarsal sesamoids with underlyi ng subarticular cystic changes. Additional mild osteoarthritis at several joints in the mid and hindf oot with a few foci of mild subarticular edema-like signal changes. Fluid: Physiologic amount fluid in the joint spaces. No other abnormal fluid collections. IMPRESSION: 1. Plantar fibroma in the mid portion of the central component of the plantar aponeurosis plantar to the navicula and deep to the marker indicating the mass of concern. 2. Mild tendinopathy/enthesopathy at the calcaneal origin of the central component of the plantar apo neurosis nodular region of tissue density replacing the normal fat signal of the fat pad plantar to t he posterior tuberosity of the calcaneus which could be seen with scarring as sequela of chronic plan tar fasciitis, heel fat pad syndrome or rheumatoid nodule in the appropriate clinical setting. 3. Moderate tendinopathy with longitudinal split tear and possible distal partial tear of the peroneu s brevis tendon. 4. Mild fusiform Achilles tendinosis without discrete tear. 5. Polyarticular osteoarthritis in the visualized right foot, moderate severity at the first metatars al sesamoid articulations and mild at several joints in the mid and hindfoot. Reviewed, dictated and finalized at location A. UNT MANAGER RELIEF IMPRESSION: 1. Plantar fibroma in the mid portion of the central component of the plantar a poneurosis plantar to th
== END ==
PROVIDERS: PCP Podiatrist Foot & Ankle Surgery; Visit Provider Podiatrist Foot & Ankle Surgery
DX: M72.2 Plantar fascial fibromatosis (principal); M77.51 Other enthesopathy of right foot and ankle; M19.071 Primary osteoarthritis, right ankle and foot
CPT/HCPCS: 73718